=== PATIENT | male | born 1970 | race Caucasian/White ===

== ENCOUNTER 2021-12-31 19:38 | Emergency (ER) | payer OTHER, SELFPAY ==
[2021-12-31 19:46] VITALS: BP 182/103; PULSE 89; RESP 16; TEMP 36.7; O2SAT 98
--- NOTE | 2021-12-31 20:02 | ED.MALEGU ---
HPI - Male Genitourinary General Chief complaint: Urogenital-Male Stated complaint: Urinary Problem Time Seen by Provider: 12/31/21 20:02 Source: patient, RN notes reviewed and old records reviewed Mode of arrival: ambulatory Limitations: no limitations History of Present Illness HPI Narrative: 51 year old male who presents to [facility] care with complaints of one week history of difficulty with urination, right fkank pain with urination, urgency, frequency and burning with urination. Patient has history of hypertension but has not been taking his medication for some time. He states he gets medication from [facility] for his psychiatric condition but has never gotten his blood pressure med filled there he just quit taking it. He use to be followed by a PCP who prescribed his antihypertensive med but can't remember name and unable to find in his history. Patient is on Invega Sustenna shots monthly for psychiatric management. Patient denies any fevers chills or sweats, denies any nausea or vomiting or any abdominal pain, reports no penile drainage or concern for STD's. MD Complaint: dysuria Onset (ago): week(s) (1) Related Data Home Medications Medication Instructions Recorded Confirmed paliperidone palmitate 234 mg/1.5 syr IM 12/31/21 mL intramuscular syringe (Invega Sustenna) Allergies Allergy/AdvReac Type Severity Reaction Status Date / Time No Known Allergies Allergy Verified 12/31/21 19:50 Review of Systems Review of Systems: CONSTITUTIONAL: Denies fever, chills, or sweats. EYES: Denies visual changes, redness, or discharge. ENT: Denies rhinorrhea, congestion, sore throat, or otalgia. CARDIOVASCULAR: Denies chest pain, palpitations, or edema. RESPIRATORY: Denies cough or dyspnea. GASTROINTESTINAL: Denies abdominal pain, nausea, vomiting, or diarrhea. GENITOURINARY: Positive for dysuria no visible hematuria, urgency, frequency difficulty urinating SKIN: Denies rash or itching. MUSCULOSKELETAL: Denies back pain, joint pain, or myalgia. NEUROLOGIC: Denies headache, numbness, or weakness. PSYCHIATRIC: Positive for history of anxiety or depression. All systems reviewed & are unremarkable except as noted in HPI and below PMFSH Past Medical History Medical History (Updated 01/02/22 @ 20:32 by Nannette Hwang NP) Anxiety and depression Bipolar disorder Hypertension Social History Social History (Updated 01/02/22 @ 20:20 by Nannette Hwang NP) Smoking packs per day: 1 Smoking cigarettes per day: 20.0 Smoking status: Current every day smoker Tobacco type: cigarettes Alcohol intake: unknown Substance use: unknown Gender identity (if verbalized by the patient): Male Comments At time of signature, agree with nursing past medical, surgical, social and family history. There is no relevant family history pertinent to the presenting complaint Exam Narrative: GENERAL: Well-appearing, well-nourished, and in no acute distress.anxious HEAD: Normocephalic, atraumatic. EYES: PERRLA and EOMI. ENT: Nares clear, no rhinorrhea or epistaxis. Mucous membranes moist.TM's normal with good light reflex, throat pink with no lesion or tonsil swelling. RESPITATOTY: lungs clear to ascultation, no tachypnea noted SAO2 98% on room air. Cardiac: heart rate even and regular no murmur noted, no peripheral edema normal pulses ABDOMEN: Soft, nontender on palpation, nondistended, normal active bowel sounds.positive for right flank pain EXTREMITIES: Normal range of motion No edema. SKIN: Warm, dry, no rash. NEURO: No focal deficits. Alert and oriented x3. Course Course Level of Care: Express Care Visit Vital Signs Vital signs: Vital Signs Temperature 36.7 C 12/31/21 19:46 Pulse Rate 89 12/31/21 19:46 Respiratory Rate 16 12/31/21 19:46 Blood Pressure 182/103 H 12/31/21 19:46 Pulse Oximetry 98 12/31/21 19:46 Oxygen Delivery Room Air 12/31/21 19:46 Temperature 36.7 C 12/31/21 19:46 Pu
[2021-12-31 20:14] VITALS: BP 187/100
== END 2021-12-31 20:20 | disposition home or self-care (01) ==
PROVIDERS: Emergency Provider Registered Nurse; PCP Nurse Practitioner Family
DX: N39.0 Urinary tract infection, site not specified (principal); I10 Essential (primary) hypertension; Z91.14 Patient's other noncompliance with medication regimen; F17.210 Nicotine dependence, cigarettes, uncomplicated
CPT/HCPCS: 81003; 87086; 99213; G0463